=== PATIENT | female | born 1950 | race Caucasian/White ===

== ENCOUNTER → 2018-12-27 12:24 | Day surgery (SDC) | payer MEDICARE, BC ==
[~2018-12-27 12:24] MED LIST: Buffered Lidocaine 1% SYRIN* 1 ML/SYRINGE INTRADERM ONE; Bupivacaine 0.25% SDV PF* 10 ML VIAL INJ ONE; Dexamethasone IV* 4 MG/ML 1 ML (4 MG) IV SLOW PU ONE; Dexamethasone IV* 4 MG/ML 1 ML (4 MG) ONE; Lactated Ringers 1000 ML Bag* 1,000 ML IV SCH; Lidocaine 1% w EPI 1:100,000* MDV 20 ML VIAL ONE; Midazolam* 1 MG/ML 5 ML VIAL (5 MG) ONE; Mineral Oil Sterile, TOPICAL* 25 ML BTL ONE; Ondansetron INJ* 2 MG/ML VIAL ONE; Propofol* 10 MG/ML 20 ML BTL ONE; ceFAZolin 2 GM PREMIX in ORs 2 GM/50 ML BAG ONE; fentaNYL* 50 MCG/ML 2 ML VIAL (100 MCG VIAL) ONE
[2018-12-27 17:21] VITALS: BP 136/87
== END | disposition home or self-care (01) ==
LOC: OR 12:24
PROVIDERS: ATTEND Plastic Surgery
DX: C44.212 Basal cell carcinoma of skin of right ear and external auricular canal (principal); M79.7 Fibromyalgia; Z86.718 Personal history of other venous thrombosis and embolism; Z79.01 Long term (current) use of anticoagulants; F31.89 Other bipolar disorder; J45.909 Unspecified asthma, uncomplicated; I34.1 Nonrheumatic mitral (valve) prolapse; Z87.891 Personal history of nicotine dependence
CPT/HCPCS: 88305; 88331; 88332; A9270-GY; J0690; J1100; J2250; J2405; J2704; J3010; J3490

== ENCOUNTER 2020-12-02 11:19 | Inpatient (IN) ==
[2020-12-02 12:35] LABS: ABS Basophils 0.1 10^3/ul (0-0.2); ABS Eosinophils 0.1 10^3/ul (0-0.6); ABS Lymphocytes 1.4 10^3/ul (1.0-4.8); ABS Monocytes 0.5 10^3/ul (0-0.8); Hematocrit 41 % (35-47); Hemoglobin 13.9 g/dL (12.0-16.0); Lymphocyte % 22.6 %; Mean Corpuscular HGB Conc 34 g/dL (31-36); Mean Corpuscular Hemoglobin 30 pg (27-31); Mean Corpuscular Volume 88 fL (80-97); Nucleated Red Blood Cells % 0.1; Platelet Count 261 10^3/uL (150-450); Red Blood Count 4.64 10^6 /uL (3.70-4.87); Red Cell Distribution Width 13 % (10-15); White Blood Count 6.1 10^3/uL (3.5-10.8)
[2020-12-02 13:00] LABS: INR 1.52 (0.86-1.15)
[2020-12-02 13:11] LABS: Blood Urea Nitrogen 14 mg/dL (6-24); CO2 Carbon Dioxide 28 mmol/L (22-32); Calcium 9.2 mg/dL (8.6-10.3); Chloride 100 mmol/L (101-111); EGFR Non-African American 52.9 (>60); Glucose 119 mg/dL (70-100); Sodium 136 mmol/L (135-145)
[2020-12-02] MEDS ORDERED: Iodixanol (CONTRAST) 320 MG/ML 100 ML SDV IV ONE (13:20)
[2020-12-02 13:22] LABS: Anion Gap 8 mmol/L (2-11)
[2020-12-02] MEDS ORDERED: HYDROcodone/ACETAMIN 5/325 mg TAB PO ONE (14:55)
[2020-12-02] MEDS ORDERED: Enoxaparin 40 MG/0.4 ML SYR SUBCUT SCH (16:00)
[2020-12-02 18:00] LABS: Rapid COVID-19 Molecular Undetected (Undetected)
[2020-12-02] MEDS ORDERED: Warfarin per PHARMACY **NOTE FOLLOW UP SCH (18:00)
[2020-12-02 18:08] LABS: Potassium Redraw 3.9 mmol/L (3.5-5.0)
[2020-12-03] MEDS: NS 0.9% 1000 ml BAG 1,000 ML IV SCH ×2 (00:14→08:48)
[2020-12-03 06:40] LABS: INR 1.31 (0.86-1.15)
[2020-12-03 15:46] LABS: TSH Ultra Thyroid Stim Horm 1.02 mcIU/mL (0.34-5.60)
[2020-12-03] MEDS: Warfarin DAILY REMINDER **NOTE FOLLOW UP SCH (17:37)
[2020-12-04 05:48] LABS: INR 1.44 (0.86-1.15)
[2020-12-04 05:57] LABS: EGFR African American 76.5 (>60); EGFR Non-African American 63.3 (>60)
[2020-12-04] MEDS: Warfarin DAILY REMINDER **NOTE FOLLOW UP SCH (18:25)
[2020-12-05 16:42] LABS: INR 2.01 (0.86-1.15)
[2020-12-05] MEDS: Warfarin DAILY REMINDER **NOTE FOLLOW UP SCH (17:44)
[2020-12-06 04:57] LABS: INR 2.23 (0.86-1.15)
[2020-12-06] MEDS: Warfarin DAILY REMINDER **NOTE FOLLOW UP SCH (16:26)
[2020-12-07 04:29] LABS: INR 2.65 (0.86-1.15)
[2020-12-07] MEDS: Warfarin DAILY REMINDER **NOTE FOLLOW UP SCH (16:26)
[2020-12-08 06:11] LABS: INR 2.83 (0.86-1.15)
[2020-12-08] MEDS: Warfarin DAILY REMINDER **NOTE FOLLOW UP SCH (16:14)
[2020-12-08] MEDS: Senna TAB 8.6 mg TAB PO PRN (23:15)
[2020-12-08] MEDS: Polyethylene Glycol 3350 17 GM PACKET PO PRN (23:16)
[2020-12-09 05:55] LABS: INR 2.74 (0.86-1.15)
[2020-12-09] MEDS: Polyethylene Glycol 3350 17 GM PACKET PO PRN ×2 (09:46→21:17)
[2020-12-09] MEDS: Warfarin DAILY REMINDER **NOTE FOLLOW UP SCH (18:11)
[2020-12-09] MEDS: Senna TAB 8.6 mg TAB PO PRN (21:16)
[2020-12-09] MEDS ORDERED: Lactulose 300 ML for PR 200 GM/300 ML BTL PR PRN (22:00)
[2020-12-10 05:31] LABS: Hematocrit 39 % (35-47); Hemoglobin 13.2 g/dL (12.0-16.0); Mean Platelet Volume 8.1 fL (7.4-10.4); Platelet Count 228 10^3/uL (150-450)
[2020-12-10 05:35] LABS: INR 2.48 (0.86-1.15)
[2020-12-10] MEDS ORDERED: Ondansetron ODT 4 mg TAB 4 MG TAB SL PRN (09:23)
[2020-12-10 10:07] VITALS: BP 127/61
== END 2020-12-10 11:49 | DRG 149 ==
LOC: MEDTELE 11:19 → ED 11:19 → SUATTDRO 15:33 → MEDTELE 18:02 → SUATTDRO 12-03 16:00 → MEDTELE 12-09 13:59
PROVIDERS: ADMIT Internal Medicine; ATTEND Student in an Organized Health Care Education/Training Program